=== PATIENT | female | born 1980 | race Caucasian/White ===

== ENCOUNTER 2016-06-12 19:41 | Emergency (ER) | payer OTHER ==
[2016-06-12] MEDS ORDERED: METHYLPREDNISOLONE ACETATE 80 MG/ML VIAL IM ONE (22:48)
[2016-06-12] MEDS ORDERED: DEXAMETHASONE SOD PHOSPHATE 10 MG/ML VIAL IM ONE (22:48)
[2016-06-12] MEDS ORDERED: KETOROLAC TROMETHAMINE 60 MG/2 ML VIAL IM ONE ×2 (22:48→22:51)
[2016-06-12] MEDS ORDERED: DEXAMETHASONE SOD PHOSPHATE 10 MG/ML VIAL ONE (22:51)
[2016-06-12] MEDS ORDERED: METHYLPREDNISOLONE ACETATE 80 MG/ML VIAL ONE (22:51)
--- NOTE | 2016-06-12 22:57 | ERNOTE ---
Lower Extremity HPI - Narrative Date of Service: 06/12/16 - General Lower Extremities Pain: leg: right, foot: right, ankle: right Time Seen by Provider: 06/12/16 22:30 Source: patient Exam Limitations: no limitations - Immun/Allergies/Home Medications Immunizations: IMMUNIZATION HX Immunizations Up to Date Yes History of Influenza Vaccine Yes Hx Pneumococcal Vaccination No Allergies/Adverse Reactions: Allergies Allergy/AdvReac Type Severity Reaction Status Date / Time latex Allergy Verified 06/12/16 19:54 hydrocodone bitartrate AdvReac Verified 06/12/16 19:54 [From Vicodin] Home Medications: HOME MEDICATIONS metFORMIN HCL [Glucophage] 1,000 mg PO BIDWM 05/05/16 [Last Taken Unknown] Methylprednisolone [Medrol Dosepak] 4 mg PO DAILY #21 tab.ds.pk 06/12/16 [Last Taken Unknown] traMADol HCL [Ultram] 50 - 100 mg PO QID PRN #14 tab 06/12/16 [Last Taken Unknown] - History of Present Illness Narrative: Pt states she was awakened from sleep with right leg, ankle and foot pain. She denies any inciting event that she knows of Occurred: this morning Location of Incident: home Method of Injury: Reports: no apparent injury Modifying Factors - (Worsens): Reports: movement Associated Symptoms: Reports: weakness, sensory loss Subsequent Symptoms: Denies: bowel/bladder problem Review of Systems - Review of Systems Constitutional: Present: no symptoms reported EYE: Present: no symptoms reported ENT: Present: no symptoms reported Respiratory: Present: no symptoms reported Cardiology: Present: no symptoms reported Gastrointestinal/Abdominal: Present: no symptoms reported Genitourinary: Present: no symptoms reported Musculoskeletal: Present: back pain Skin: Absent: rash Neurological: Present: weakness, tingling Endocrine: Present: no symptoms reported Hematologic/Lymphatic: Present: no symptoms reported Psych: Present: no symptoms reported - Patient's Past Medical History Patient History - Medical: Anemia, Diabetes Type 2, Migraines, Obesity, Seizures , Other Patient History - Cardiac/Respiratory: No pertinent hx Patient History - Cancer: No Hx of Cancer Patient History - Surgical Procedures: , T & A LMP (females 10-50): now - Family History Mother Family History - Medical: Bipolar Family History - Cardiac/Respiratory: Hypertension Family History - Cancer: Thyroid Father Family History - Medical: History Unknown Family History - Cardiac/Respiratory: History Unknown - Social History Living Situations: home Smoking Status: Never smoker Alcohol Use: none Drug Use: none Physical Exam - Physical Exam General Appearance: Present: wd/wn, alert, no apparent distress Neck: Present: normal inspection, nontender Respiratory: Present: no respiratory distress, no accessory muscle use Back Exam: Present: no vertebral tenderness Extremity Exam: Present: decreased range of motion - right leg due to pain Neurological Exam: Present: alert, oriented, normal mood/affect, motor weakness - right great toe, other - some subjective decreased sensation with tingling, medial foot. SLR pos at 20 degrees right, negative left Skin Exam: Present: normal color, warm/dry ED Progress - Vital Signs Patient's Vital Signs:: I have reviewed the patient's vital signs. Vital Signs: Vital Signs 06/12/16 19:48 Temperature 36.5 C Pulse Rate 98 Respiratory 18 Rate Blood Pressure 143/81 O2 Sat by Pulse 97 Oximetry - Progress/Reassessment Chief Complaint: Lower Extremity Pain/ Injury Departure Clinical Impression: Lumbar radiculopathy, acute - Departure Disposition: Home Follow Up Needed Condition: Fair Instructions: Lumbosacral Radiculopathy Additional Instructions: Start the methylprednisolone prescription on . Take tylenol or the prescription pain med as needed for pain Prescriptions: Methylprednisolone [Medrol Dosepak] 4 mg PO DAILY #21 tab.ds.pk traMADol HCL [Ultram] 50 - 100 mg PO QID PRN #14 tab PRN Reason: Pain
[2016-06-12 23:18] VITALS: BP 132/101
== END 2016-06-12 23:17 | disposition home or self-care (01) ==
LOC: ER 19:41
DX: M54.16 Radiculopathy, lumbar region (principal); E11.9 Type 2 diabetes mellitus without complications